=== PATIENT | female | born 1950 | race Asian ===

== ENCOUNTER 2024-03-27 13:43 | Inpatient (IN) ==
[2024-03-27 17:45] LABS: ABS Lymphocytes 0.6 10^3/uL (1.0-4.8); ABS Monocytes 0.2 10^3/uL (0.0-0.9); ABS Neutrophils 5.6 10^3/uL (1.5-7.6); Eosinophil % 0.1 %; Hematocrit 41.6 % (35-45); Hemoglobin 13.5 g/dL (11.5-14.3); Lymphocyte % 9.7 %; Mean Corpuscular Hemoglobin 31.4 pg (27-33); Mean Corpuscular Hgb Conc 32.4 g/dL (31-36); Mean Corpuscular Volume 96.6 fL (80-97); Mean Platelet Volume 7.2 fL (7.5-11.2); Platelet Count 277 10^3/uL (150-450); Red Blood Count 4.31 10^6/uL (3.63-4.92); Red Cell Distribution Width 14.1 % (12-17); White Blood Count 6.5 10^3/uL (3.8-11.8)
[2024-03-27] MEDS: Acetaminophen IV 1 GM/100ML 1,000 MG/100 ML BAG IV ONE (17:48)
[2024-03-27] MEDS: NS 0.9% 1000 ml BAG 1,000 ML IV SCH (18:03)
[2024-03-27 18:51] LABS: ALT 23 U/L (7-52); Albumin 4.7 g/dL (3.2-5.2); Alkaline Phosphatase 72 U/L (35-149); Blood Urea Nitrogen 24 mg/dL (6-24); CO2 Carbon Dioxide 24 mmol/L (22-32); Calcium 9.5 mg/dL (8.6-10.3); Chloride 107 mmol/L (101-111); Creatinine, Serum 0.54 mg/dL (0.51-0.95); Globulin 2.4 g/dL (2-4); Glucose 105 mg/dL (70-100); Sodium 141 mmol/L (135-145); Total Bilirubin 0.6 mg/dL (0.2-1.0); Total Protein 7.1 g/dL (6.4-8.9); eGFR CKD-EPI 97.2 (>60)
[2024-03-27 18:52] LABS: Anion Gap 10 mmol/L (2-16)
[2024-03-27] MEDS: Acetaminophen IV 1 GM/100ML 1,000 MG/100 ML BAG IV PRN (21:25)
[2024-03-27] MEDS: Heparin 5000 UNITS/ML 1 mL VIAL SUBCUT ONE (21:25)
[2024-03-28 06:16] LABS: ABS Lymphocytes 0.9 10^3/uL (1.0-4.8); ABS Monocytes 0.2 10^3/uL (0.0-0.9); ABS Neutrophils 4.2 10^3/uL (1.5-7.6); Eosinophil % 0.4 %; Hematocrit 35.3 % (35-45); Hemoglobin 11.8 g/dL (11.5-14.3); Mean Corpuscular Hemoglobin 31.8 pg (27-33); Mean Corpuscular Hgb Conc 33.4 g/dL (31-36); Mean Corpuscular Volume 95.1 fL (80-97); Mean Platelet Volume 6.9 fL (7.5-11.2); Nucleated Red Blood Cells % 0.1 %/100WBC (0.0-0.8); Platelet Count 235 10^3/uL (150-450); Red Blood Count 3.71 10^6/uL (3.63-4.92); Red Cell Distribution Width 13.6 % (12-17); White Blood Count 5.4 10^3/uL (3.8-11.8)
[2024-03-28 06:34] LABS: Calcium 8.5 mg/dL (8.6-10.3); Creatinine, Serum 0.52 mg/dL (0.51-0.95); Magnesium 1.8 mg/dL (1.9-2.7); Potassium 3.4 mmol/L (3.5-5.0)
[2024-03-28] MEDS: AZILSARTAN 40 MG PO SCH (08:14)
[2024-03-28] MEDS: MECOBALAMIN 500 MCG PO SCH (08:14)
[2024-03-28] MEDS: CMCS: Simvastatin 10 mg TAB (NF) PO SCH (08:14)
[2024-03-28] MEDS: Magnesium Sulfate 2 gm BAG 2 GM/50 ML BAG IVPB ONE (08:16)
[2024-03-28] MEDS: KCL 20 MEQ/100 ML IVPREMIX 20 MEQ/100 ML BAG IV ONE (09:32)
[2024-03-29 05:29] LABS: ABS Eosinophils 0.1 10^3/uL (0.0-0.5); ABS Lymphocytes 0.9 10^3/uL (1.0-4.8); ABS Monocytes 0.3 10^3/uL (0.0-0.9); ABS Neutrophils 4.1 10^3/uL (1.5-7.6); Hematocrit 32.7 % (35-45); Hemoglobin 11.1 g/dL (11.5-14.3); Mean Corpuscular Hemoglobin 32.2 pg (27-33); Mean Corpuscular Hgb Conc 33.8 g/dL (31-36); Mean Corpuscular Volume 95.1 fL (80-97); Mean Platelet Volume 6.7 fL (7.5-11.2); Platelet Count 203 10^3/uL (150-450); Red Blood Count 3.43 10^6/uL (3.63-4.92); Red Cell Distribution Width 13.7 % (12-17); White Blood Count 5.4 10^3/uL (3.8-11.8)
[2024-03-29 05:52] LABS: Calcium 8.2 mg/dL (8.6-10.3); Creatinine, Serum 0.52 mg/dL (0.51-0.95); Potassium 3.6 mmol/L (3.5-5.0)
[2024-03-29] MEDS ORDERED: fentaNYL 100 mcg/2 ml 50 MCG/ML VIAL ONE ×2 (08:58→12:19)
[2024-03-29] MEDS ORDERED: Midazolam 2 mg/2 ml VIAL 1 mg/ml 2 ml VIAL (2 mg) ONE (08:58)
[2024-03-29] MEDS ORDERED: ceFAZolin 2 GM PREMIX 2 GM/50 ML BAG ONE (09:32)
[2024-03-29] MEDS ORDERED: Lidocaine 1% MPF 5 ML VIAL ONE (09:39)
[2024-03-29] MEDS ORDERED: ROPIVACAINE 5 MG/ML 30 ML BTL (0.5%) ONE (09:39)
[2024-03-29] MEDS ORDERED: Lidocaine 1% w EPI 1:200,000 SDV 30 ML VIAL ONE (09:41)
[2024-03-29] MEDS ORDERED: Naloxone 0.4 mg VIAL 0.4 mg/ml 1 ml VIAL IV PRN (09:50)
[2024-03-29] MEDS ORDERED: HYDROmorphone 1 MG/1 ML SYRINGE IV PRN (09:50)
[2024-03-29] MEDS ORDERED: Propofol 10 MG/ML 20 ML BTL ONE ×2 (10:40→12:47)
[2024-03-29] MEDS ORDERED: Phenylephrine 40 mcg/mL 10mL (400mcg) SYRINGE ONE (10:40)
[2024-03-29] MEDS ORDERED: Lidocaine 2% PF 5 ML VIAL ONE (10:40)
[2024-03-29] MEDS ORDERED: KETAMINE HCL 10 MG/ML 20 ml VIAL (200 MG) ONE (10:51)
[2024-03-29] MEDS ORDERED: Phenylephrine IV 10 MG/ML 1 ml VIAL ONE (11:39)
[2024-03-29] MEDS ORDERED: Ondansetron 4 mg VIAL 2 MG/ML 2 ml VIAL ONE (11:52)
[2024-03-29] MEDS ORDERED: Dexamethasone IV 4 MG/ML VIAL 1 ml VIAL ONE (11:52)
[2024-03-29] MEDS ORDERED: Acetaminophen IV 1 GM/100ML 1,000 MG/100 ML BAG IV ONE (13:35)
[2024-03-29] MEDS ORDERED: Ondansetron 4 mg VIAL 2 MG/ML 2 ml VIAL IV PRN (16:01)
[2024-03-29] MEDS ORDERED: Lactulose 30 ml UDC PO PRN (16:01)
[2024-03-29] MEDS ORDERED: Ondansetron ODT 4 mg TAB 4 MG TAB PO PRN (16:01)
[2024-03-29] MEDS ORDERED: Magnesium Hydroxide LIQ 30 ML UDC PO PRN (16:01)
[2024-03-29] MEDS ORDERED: Morphine 2 MG/ML SYRINGE IV PRN (16:01)
[2024-03-29] MEDS: Potassium Chlor 20 meq TAB.ER PO ONE (16:14)
[2024-03-29] MEDS: Lactated Ringers 1000 ml BAG 1,000 ML IV SCH (16:14)
[2024-03-29] MEDS: Magnesium Hydroxide LIQ 30 ML UDC PO SCH (20:31)
[2024-03-29] MEDS: ceFAZolin 1 GM ADVAN 1 GM in NS 0.9% 50 ML 50 ML IVPB SCH (20:32)
[2024-03-30 06:42] LABS: Hematocrit 32.9 % (35-45); Hemoglobin 11.3 g/dL (11.5-14.3); Mean Platelet Volume 6.4 fL (7.5-11.2); Platelet Count 200 10^3/uL (150-450)
[2024-03-30 09:11] LABS: Calcium 8.6 mg/dL (8.6-10.3); Creatinine, Serum 0.58 mg/dL (0.51-0.95); Potassium 4.3 mmol/L (3.5-5.0); eGFR CKD-EPI 95.5 (>60)
[2024-03-30] MEDS: Vitamin THERAPEUTIC TAB PO SCH (10:15)
[2024-03-31 07:52] LABS: Hematocrit 33.4 % (35-45); Hemoglobin 11.5 g/dL (11.5-14.3); Mean Platelet Volume 6.9 fL (7.5-11.2); Platelet Count 217 10^3/uL (150-450)
[2024-03-31 14:01] VITALS: BP 124/82
== END 2024-03-31 18:45 | disposition home or self-care (01) | DRG 494 ==
LOC: ED 13:43 → SUATTDRO 17:36 → EDHOLD 17:36 → SSU 19:38
PROVIDERS: ADMIT Internal Medicine; ATTEND Internal Medicine